=== PATIENT | female | born 1995 | race Caucasian/White ===

== ENCOUNTER 2016-03-15 06:14 | Emergency (ER) ==
[2016-03-15 06:33] VITALS: BP 130/83
--- NOTE | 2016-03-15 06:57 | PROVIDER DOCUMENTATION ---
HPI-Respiratory General - General Chief Complaint: Flu Symptoms Stated Complaint: FLU LIKE SX Time Seen by Provider: 03/15/16 06:20 Source: patient Allergies/Adverse Reactions: Patient Allergies Allergy/AdvReac Type Severity Reaction Status Date / Time No Known Allergies Allergy Verified 06/20/15 13:02 - History of Present Illness-Resp Nature of Presenting Problem: Reports flu-like symptoms started X 24 hours ago, including sore throat, mild cough, runny nose, body aches and fever of 100.2. Reports no SOB and no CP/KEITH. H /o tonsillectomy. Denies Chills and no N/V/D. Denies preg and no dysuria. Pt took Motrin and Tylenol TEST [employer]OR. Quality of Pain: reports: aching Severity in ED: reports: moderate Onset/Duration: reports: 24 hours ago Timing: reports: still present Context: reports: recent foreign travel Exposure: reports: unknown cause Cough Quality/Degree: reports: mild Episode Frequency: no prior episodes Current Respiratory Medication Therapy: Initiated none Modifying Factors: improves with: nothing Associated Symptoms: reports: cough, flu-like symptoms, muscle/bodyaches, sore throat. denies: headache, heart racing, shortness of breath, sinus pain, sweaty Similar Symptoms Previously?: No Recently seen or treated by another doctor?: No Review of Systems - Adult - REVIEW OF SYSTEMS - ADULT Constitutional: reports: see HPI, fever. denies: fatique, weight gain Eyes: reports: no symptoms reported Ears, Nose, Mouth & Throat: reports: see HPI, throat pain. denies: ear pain, tinnitus, sinus problem, nose pain, mouth swelling, hoarseness, throat swelling Cardiovascular: reports: no symptoms reported. denies: chest pain Respiratory: reports: see HPI, cough. denies: hemoptysis, pleurisy, shortness of breath, wheezing Gastrointestinal: reports: no symptoms reported Genitourinary: reports: no symptoms reported Musculoskeletal: reports: see HPI, muscle aches Integumentary: reports: no symptoms reported Neurological: reports: no symptoms reported Psychiatric: reports: no symptoms reported Endocrine: reports: no symptoms reported Hematologic/Lymphatic: reports: no symptoms reported Allergic/Immunologic: reports: no symptoms reported All Other Systems: Reviewed and Negative Past History - Adult - PAST MEDICAL HISTORY-ADULT Major Childhood Illnesses: reports: denies history Cardiovascular: reports: denies history Respiratory: reports: denies history. denies: asthma, bronchitis, pneumonia Gastrointestinal: reports: denies history Obstetrical/Gynecological: reports: - spont/elective Genitourinary: reports: denies history Musculoskeletal: reports: denies history Neurological: reports: denies history Endocrine/Immune: reports: denies history Other Conditions: reports: denies history - PRIOR SURGERIES/PROCEDURES Surgical/Procedure History: reports: none - IMMUNIZATION STATUS Childhood Immunizations: See Nurse Assessment Flu Vaccine: See Nurse Assessment - FAMILY HISTORY Family History: reviewed, not pertinent Physical Exam-General - PHYSICAL EXAM-ADULT Initial Vital Signs Reviewed: Yes - CONSTITUTIONAL General Appearance: appears well, alert, no apparent distress - EYES Eyes: PERRL/EOMI, pink conjunctivae, fundi clear, no AV nicking - HEAD, EARS, NOSE, MOUTH & THROAT HENMT: normocephalic/atraumatic, moist mucous membranes, pharyngeal erythema (H/ o tonsillectomy). negative: tonsillar exudate - NECK Neck: non-tender, full range of motion, supple - RESPIRATORY Respiratory: chest non-tender, lungs clear, normal breath sounds, no pleuratic chest pain, no respiratory distress, no accessory muscle use - CARDIOVASCULAR Cardiovascular: normal peripheral pulses, regular rate, rhythm, no edema, no gallop - GASTROINTESTINAL (ABDOMEN) Abdominal Exam: normal bowel sounds, non tender, soft, no organomegaly - MUSCULOSKELETAL Back Exam: normal inspection, no CVA tenderness, no vertebral tenderness Extremity: normal range of motion, non-tender, normal gait, normal inspection - SKIN Integumentary: normal color, normal turgor, warm/dry - PSYCHIATRIC Psych/Mental Status: normal mood/affect, normal thought content, normal thought process, oriented x 3 Progress - PLAN OF CARE/RESULTS Progress/Plan/Lab Results: Orders Category Date Time Status INFLUENZA SCREEN PL Stat Lab 03/15/16 06:30 Completed strep [DIRECT STREP PL] Stat Lab 03/15/16 06:30 Completed Vital Signs Temp Pulse Resp BP Pulse Ox 03/15/16 06:28 99.5 F 123 H 18 130/83 100 No Known Allergies Allergy (Verified 06/20/15 13:02) No Home Medications 03/15/16 Laboratory 03/15/16 03/15/16 06:30 06:30 Influenza A (Rapid) NEGATIVE Influenza B (Rapid) NEGATIVE Group A Strep Rapid NEGATIVE Laboratory Results - last 24 hr 03/15/16 03/15/16 06:30 06:30 Influenza A (Rapid) NEGATIVE Influenza B (Rapid) NEGATIVE Group A Strep Rapid NEGATIVE Departure - Departure Time of Disposition Order: 07:04 DIAGNOSIS: Bronchitis Disposition: HOME 01 Certified Medical Emergency: Emergent Condition: Stable Additional Instructions: Follow up with regular MD in 2-3 days. Return to ER if your symptoms worsen. Plenty of oral fluids. Prescriptions: Methylprednisolone [Medrol Dosepak] 4 mg PO DIRECTED #1 package Azithromycin [Zithromax Z-[place]] 250 mg PO DIRECTED #1 pkg
[2016-03-15] MEDS ORDERED: XYLOCAINE-MPF 1% INJ ONE (07:21)
[2016-03-15] MEDS ORDERED: ROCEPHIN ONE (07:21)
[2016-03-15] MEDS ORDERED: ROCEPHIN IM ONE (07:21)
[2016-03-15] MEDS ORDERED: XYLOCAINE-MPF 1% 5 ML ONE (07:21)
== END 2016-03-15 07:48 | disposition home or self-care (01) ==
LOC: P.ED 06:14
DX: J40 Bronchitis, not specified as acute or chronic (principal); J02.9 Acute pharyngitis, unspecified; R05 Cough; R09.89 Other specified symptoms and signs involving the circulatory and respiratory systems; M79.1 Myalgia; R50.9 Fever, unspecified
CPT/HCPCS: 87081; 87430; 87804; 96372; J0696